=== PATIENT | female | born 1955 | race Caucasian/White ===

== ENCOUNTER 2022-06-17 16:29 | Inpatient (IN) | payer MEDICARE, OTHER ==
[~2022-06-17] VITALS: Ht 162.6 cm; Wt 75.7 kg
[~2022-06-17 16:29] MED LIST: OMEP20 PO; QUET25TA PO; ZOLOFT; [UNRECOGNIZED DRUG - OTHER]
[2022-06-17] MEDS ORDERED: CITA10TA99 PO (16:43)
[2022-06-17] MEDS ORDERED: DEXTROSE 5%-0.9% SODIUM CHL 1,000 ML IV ONE (16:45)
[2022-06-17] MEDS ORDERED: ALEN70TA80 PO (16:45)
[2022-06-17 16:50] LABS: GLUCOMETER DEV NAME(LOC) ERT.5; GLUCOSE,POINT OF CARE 125 MG/DL (70-110)
[2022-06-17 17:17] LABS: BASOPHILS % (AUTO) 0.6 % (0.0-2.0); EOSINOPHILS % (AUTO) 0.8 % (1.0-6.0); HEMATOCRIT 47.9 % (36-46); HEMOGLOBIN 16.1 g/dL (12.0-16.0); LYMPHOCYTES # (AUTO) 1.9 K/uL (1.0-4.8); LYMPHOCYTES % (AUTO) 27.6 % (22.0-44.0); MEAN CORPUSCULAR HEMOGLOBIN 32.3 pg (26.0-34.0); MEAN CORPUSCULAR HGB CONC 33.5 G/dL (31.0-37.0); MEAN CORPUSCULAR VOLUME 96 fL (80-100); MONOCYTES # (AUTO) 0.5 K/uL (0.1-1.0); NEUTROPHILS # (AUTO) 4.5 K/uL (1.8-7.7); PLATELET COUNT (AUTO) 187 K/uL (150-450); RED BLOOD CELL COUNT(AUTO) 4.98 MIL/uL (4.00-5.20); RED CELL DISTRIBUTION WIDTH 12.8 % (11.5-14.5)
[2022-06-17 17:22] LABS: AMPHET/METH SCREEN,URINE NEGATIVE (NEGATIVE); BARBITURATE SCREEN, URINE NEGATIVE (NEGATIVE); BENZODIAZEPINES SCREEN,URINE NEGATIVE (NEGATIVE); CANNABINOID SCREEN,URINE NEGATIVE (NEGATIVE); COCAINE SCREEN,URINE NEGATIVE (NEGATIVE); METHADONE SCREEN, URINE NEGATIVE (NEGATIVE); OPIATE SCREEN,URINE NEGATIVE (NEGATIVE)
[2022-06-17 17:24] LABS: PHENCYCLIDINE SCREEN,URINE NEGATIVE (NEGATIVE)
[2022-06-17 17:24] LABS: ANION GAP 9 mmol/L (8-16); CALCIUM, TOTAL 10.3 mg/dL (8.8-10.5); CARBON DIOXIDE 26 mmol/L (22-29); CHLORIDE 98 mmol/L (98-107); CREATININE 0.81 mg/dL (0.60-1.30); GLUCOSE,RANDOM 117 mg/dL (70-110); POTASSIUM 4.2 mmol/L (3.5-5.1); SODIUM SERUM 133 mmol/L (136-145); UREA NITROGEN, BLOOD 16 mg/dL (7-18)
[2022-06-17 17:25] LABS: GLOMERULAR FILTR. RATE CALC > 60 mL/min (>60)
[2022-06-17 17:29] LABS: ALANINE AMINOTRANSFERASE 15 U/L (12-78); ALKALINE PHOSPHATASE 149 U/L (46-116); BILIRUBIN,TOTAL 0.2 mg/dL (0.1-1.0); TOTAL PROTEIN, SERUM 7.7 g/dL (6.4-8.2)
[2022-06-17 17:30] LABS: ACETAMINOPHEN < 2 mcg/mL (10-30); SALICYLATE 1.3 mg/dL (2.8-20.0)
[2022-06-17 17:39] LABS: ASPARTATE AMINOTRANSFERASE 18 U/L (15-37)
[2022-06-17 18:18] LABS: COVID AG,FIA SOURCE NASOPHARYNGEAL
[2022-06-17] MEDS ORDERED: ACETAMINOPHEN 325 MG TABLET PO PRN (18:30)
[2022-06-17] MEDS ORDERED: ONDANSETRON HCL 4 MG/2 ML VIAL IVP PRN (18:30)
[2022-06-17 19:01] LABS: GLUCOMETER DEV NAME(LOC) ERT.5; GLUCOSE,POINT OF CARE 127 MG/DL (70-110)
[2022-06-17] MEDS ORDERED: ALPR0.255 PO (23:51)
[2022-06-18] MEDS ORDERED: ALPRAZolam 1 MG TABLET PO ONE (00:15)
[2022-06-18 05:09] VITALS: BP 112/66
[2022-06-18 07:33] LABS: BASOPHILS % (AUTO) 0.4 % (0.0-2.0); EOSINOPHILS % (AUTO) 2.2 % (1.0-6.0); HEMATOCRIT 42.1 % (36-46); LYMPHOCYTES # (AUTO) 1.6 K/uL (1.0-4.8); LYMPHOCYTES % (AUTO) 34.8 % (22.0-44.0); MEAN CORPUSCULAR HEMOGLOBIN 32.5 pg (26.0-34.0); MEAN CORPUSCULAR HGB CONC 33.3 G/dL (31.0-37.0); MEAN CORPUSCULAR VOLUME 97 fL (80-100); MONOCYTES # (AUTO) 0.6 K/uL (0.1-1.0); NEUTROPHILS # (AUTO) 2.4 K/uL (1.8-7.7); NEUTROPHILS % (AUTO) 50.6 % (40.0-70.0); PLATELET COUNT (AUTO) 138 K/uL (150-450); RED BLOOD CELL COUNT(AUTO) 4.32 MIL/uL (4.00-5.20); RED CELL DISTRIBUTION WIDTH 13.2 % (11.5-14.5)
[2022-06-18 07:45] LABS: ANION GAP 5 mmol/L (8-16); CALCIUM, TOTAL 7.9 mg/dL (8.8-10.5); CARBON DIOXIDE 29 mmol/L (22-29); CHLORIDE 109 mmol/L (98-107); CREATININE 0.71 mg/dL (0.60-1.30); GLOMERULAR FILTR. RATE CALC > 60 mL/min (>60); GLUCOSE,RANDOM 89 mg/dL (70-110); POTASSIUM 4.6 mmol/L (3.5-5.1); SODIUM SERUM 143 mmol/L (136-145); UREA NITROGEN, BLOOD 16 mg/dL (7-18)
[2022-06-18 08:00] VITALS: BP 130/98
[2022-06-18 08:01] LABS: GLUCOSE,POINT OF CARE 100 MG/DL (70-110)
[2022-06-18 08:01] LABS: GLUCOSE,POINT OF CARE 91 MG/DL (70-110)
[2022-06-18 08:01] LABS: GLUCOSE,POINT OF CARE 112 MG/DL (70-110)
[2022-06-18 08:46] LABS: GLUCOMETER DEV NAME(LOC) ERT.5; GLUCOSE,POINT OF CARE 127 MG/DL (70-110)
[2022-06-18 08:46] LABS: GLUCOMETER DEV NAME(LOC) ERT.5; GLUCOSE,POINT OF CARE 136 MG/DL (70-110)
[2022-06-18 09:36] LABS: GLUCOSE,POINT OF CARE 111 MG/DL (70-110)
[2022-06-18 10:21] LABS: GLUCOSE,POINT OF CARE 82 MG/DL (70-110)
[2022-06-18 10:30] LABS: GLUCOSE,POINT OF CARE 87 MG/DL (70-110)
[2022-06-18 12:00] VITALS: BP 125/64
[2022-06-18] MEDS ORDERED: IPRATROPIUM BROMIDE 0.5 MG/2.5 ML NEB SOLUTION NEB PRN (12:30)
[2022-06-18] MEDS ORDERED: BISACODYL 10 MG RECTAL RECTAL SUPPOSITORY PR PRN (12:30)
[2022-06-18] MEDS ORDERED: ALBUTEROL SULFATE 2.5 MG/0.5 ML NEB SOLUTION NEB PRN (12:30)
[2022-06-18] MEDS ORDERED: MAGNESIUM HYDROXIDE SUSPENSION 30 ML UDCUP PO PRN (12:30)
[2022-06-18] MEDS ORDERED: ACETAMINOPHEN 325 MG TABLET PO PRN (12:30)
[2022-06-18] MEDS ORDERED: ONDANSETRON HCL 4 MG/2 ML VIAL IVP PRN (12:30)
[2022-06-18] MEDS ORDERED: MAGNESIUM SULFATE 2 GM/WATER 50 ML IV ONE (12:45)
[2022-06-18] MEDS ORDERED: CITALOPRAM HYDROBROMIDE 10 MG TABLET PO SCH ×2 (13:15→13:17)
[2022-06-18 13:21] LABS: GLUCOSE,POINT OF CARE 93 MG/DL (70-110)
[2022-06-18 13:22] LABS: GLUCOSE,POINT OF CARE 125 MG/DL (70-110)
[2022-06-18] MEDS: CITALOPRAM HYDROBROMIDE 20 MG TABLET PO SCH (14:06)
[2022-06-18 16:00] VITALS: BP 128/78
[2022-06-18] MEDS ORDERED: PANTOPRAZOLE SODIUM 40 MG DR TABLET PO ONE (16:00)
[2022-06-18] MEDS: HEPARIN SODIUM,PORCINE 5,000 UNITS/ML VIAL SQ SCH (16:05)
[2022-06-18 19:11] LABS: GLUCOSE,POINT OF CARE 128 MG/DL (70-110)
[2022-06-18 20:00] VITALS: BP 92/72
[2022-06-18] MEDS: ETHYL ALCOHOL 62% ANTISEPTIC NASAL SANITIZER 0.6 ML AMPUL NASAL SCH (21:07)
[2022-06-18] MEDS: ZOLPIDEM TARTRATE 5 MG TABLET PO PRN (21:08)
[2022-06-19] VITALS: BP 108/72
[2022-06-19] MEDS: HEPARIN SODIUM,PORCINE 5,000 UNITS/ML VIAL SQ SCH ×3 (00:07→16:00)
[2022-06-19 03:35] LABS: GLUCOSE,POINT OF CARE 96 MG/DL (70-110)
[2022-06-19 04:00] VITALS: BP 91/52
[2022-06-19 05:19] LABS: BASOPHILS % (AUTO) 0.9 % (0.0-2.0); HEMATOCRIT 38.7 % (36-46); LYMPHOCYTES # (AUTO) 1.8 K/uL (1.0-4.8); LYMPHOCYTES % (AUTO) 46.5 % (22.0-44.0); MEAN CORPUSCULAR HEMOGLOBIN 32.7 pg (26.0-34.0); MEAN CORPUSCULAR HGB CONC 33.6 G/dL (31.0-37.0); MEAN CORPUSCULAR VOLUME 97 fL (80-100); MONOCYTES # (AUTO) 0.4 K/uL (0.1-1.0); MONOCYTES % (AUTO) 11.4 % (2.0-9.0); NEUTROPHILS # (AUTO) 1.4 K/uL (1.8-7.7); NEUTROPHILS % (AUTO) 38.2 % (40.0-70.0); PLATELET COUNT (AUTO) 126 K/uL (150-450); RED BLOOD CELL COUNT(AUTO) 3.99 MIL/uL (4.00-5.20); RED CELL DISTRIBUTION WIDTH 12.8 % (11.5-14.5)
[2022-06-19 05:29] LABS: ANION GAP 5 mmol/L (8-16); CALCIUM, TOTAL 8.1 mg/dL (8.8-10.5); CARBON DIOXIDE 29 mmol/L (22-29); CHLORIDE 108 mmol/L (98-107); CREATININE 0.67 mg/dL (0.60-1.30); GLOMERULAR FILTR. RATE CALC > 60 mL/min (>60); GLUCOSE,RANDOM 98 mg/dL (70-110); POTASSIUM 4.4 mmol/L (3.5-5.1); SODIUM SERUM 142 mmol/L (136-145); UREA NITROGEN, BLOOD 11 mg/dL (7-18)
[2022-06-19 05:53] VITALS: BP 106/67
[2022-06-19 08:46] LABS: GLUCOMETER DEV NAME(LOC) 6N.1; GLUCOSE,POINT OF CARE 88 MG/DL (70-110)
[2022-06-19] MEDS: PANTOPRAZOLE SODIUM 40 MG DR TABLET PO SCH (09:09)
[2022-06-19] MEDS: ETHYL ALCOHOL 62% ANTISEPTIC NASAL SANITIZER 0.6 ML AMPUL NASAL SCH ×2 (09:16→21:00)
[2022-06-19] MEDS: CITALOPRAM HYDROBROMIDE 20 MG TABLET PO SCH (10:15)
[2022-06-19 11:51] LABS: GLUCOMETER DEV NAME(LOC) 6N.2B; GLUCOSE,POINT OF CARE 114 MG/DL (70-110)
[2022-06-19 15:09] VITALS: BP 108/67
[2022-06-19 18:01] LABS: GLUCOMETER DEV NAME(LOC) 6N.2B; GLUCOSE,POINT OF CARE 120 MG/DL (70-110)
[2022-06-19 19:22] VITALS: BP 103/56
[2022-06-19] MEDS: ZOLPIDEM TARTRATE 5 MG TABLET PO PRN (20:05)
[2022-06-20] MEDS: HEPARIN SODIUM,PORCINE 5,000 UNITS/ML VIAL SQ SCH ×3 (01:50→16:00)
[2022-06-20 02:53] VITALS: BP 120/64
[2022-06-20 07:01] LABS: GLUCOMETER DEV NAME(LOC) 6N.2B; GLUCOSE,POINT OF CARE 90 MG/DL (70-110)
[2022-06-20 07:25] VITALS: BP 105/65
[2022-06-20] MEDS: PANTOPRAZOLE SODIUM 40 MG DR TABLET PO SCH (07:51)
[2022-06-20] MEDS: CITALOPRAM HYDROBROMIDE 20 MG TABLET PO SCH (09:57)
[2022-06-20] MEDS: ETHYL ALCOHOL 62% ANTISEPTIC NASAL SANITIZER 0.6 ML AMPUL NASAL SCH (09:58)
[2022-06-20 14:02] LABS: GLUCOMETER DEV NAME(LOC) 6N.2B; GLUCOSE,POINT OF CARE 143 MG/DL (70-110)
[2022-06-20 14:57] VITALS: BP 117/64
[2022-06-20 21:51] LABS: GLUCOMETER DEV NAME(LOC) 6N.2B; GLUCOSE,POINT OF CARE 100 MG/DL (70-110)
== END 2022-06-20 17:30 | disposition home or self-care (01) | DRG 918 ==
LOC: EMS 16:31 → ICU 06-18 04:42 → 6S 06-19 05:25
PROVIDERS: ADMIT Hospitalist; ATTEND Hospitalist
DX: T38.3X2A Poisoning by insulin and oral hypoglycemic [antidiabetic] drugs, intentional self-harm, initial encounter (principal); R45.851 Suicidal ideations; F33.2 Major depressive disorder, recurrent severe without psychotic features; I48.91 Unspecified atrial fibrillation; E83.42 Hypomagnesemia; E16.2 Hypoglycemia, unspecified; Z20.822 Contact with and (suspected) exposure to COVID-19
CPT/HCPCS: 80048; 80053; 80307; 82948; 82962; 83735; 85025; 87081; 93005; 99291; G0378; G0480; G0481; J1644; J2405; J3475; J7042